=== PATIENT | female | born 1975 | race Two or more races ===

== ENCOUNTER 2017-04-11 00:26 | Emergency (ER) | payer SELFPAY ==
[2017-04-11 00:33] VITALS: BP 141/95
--- NOTE | 2017-04-11 01:25 | DR.GENAD ---
HPI - Complaint/Symptoms Chief Complaint:: HEADACHE AND DIZZY. ONSET YESTERDAY. DENIES N/V. Self Treatment fo Chief Complaint: NONE - Source History Provided: Patient - Mode of Arrival Mode of Arrival: Ambulatory - Timing Onset of Chief Complaint: 04/09/17 PMH - PMH Past Medical History: Yes Past Medical History: Diabetes Past Surgical History: Yes Surgical History: - Family History History of Family Medical Conditions: No - infectious screening Have you traveled outside the country in the last 6 months?: No ROS - Review of Systems Eyes: No Symptoms Reported ENTM: Nose Congestion Respiratoy: No Symptoms Reported Cardiovascular: No Symptoms Reported Gastrointestinal/Abdominal: No Symptoms Reported Genitourinary: No Symptoms Reported Neurological: Headache Musculoskeletal: No Symptoms Reported Integumentary: No Symptoms Reported Hematologic/Lymphatic: No Symptoms Reported Endocrine: No Symptoms Reported Psychiatric: No Symptoms Reported All Other Systems: Reviewed and Negative PE - Vital Signs Vitals: Temperature 97.9 F Pulse Rate 84 Respiratory Rate 18 Blood Pressure 141/95 O2 Sat by Pulse Oximetry 98 - General Limitations: Language Barrier General Appearance: Alert, In No Apparent Distress - Head Head Exam: Normal Inspection, Atraumatic - Eyes Eye exam: Normal Appearance, PERRL, EOMI - ENT ENT Exam: Mucous Membranes Moist External Ear Exam: Normal External Inspection TM/Canal Exam: Bilateral Normal Nose Exam: Normal Nose Exam, Other (congestion) Mouth Exam: Normal Inspection Throat Exam: Normal Inspection - Neck Neck Exam: Normal Inspection, Full ROM - Chest Chest Inspection: Normal Inspection, Symmetric Chest Wall Rise - Respiratory Respiratory Exam: Normal Lung Sounds Bilat Respiratory Exam: Bilateral Clear to Auscultation - Cardiovascular Cardiovascular Exam: Regular Rate, Normal Rhythm - Abdominal Exam Abdominal Exam: Normal Inspection, Normal Bowel Sounds Abdominal Tenderness: negative: RUQ, RLQ, LUQ, LLQ, Epigastrium, Suprapubic, Diffuse, Mild, Moderate, Severe, Other - Extremities Extremities Exam: Normal Inspection, Full ROM - Back Back Exam: Normal Inspection, Full ROM - Neurologic Neurological Exam: Alert, Oriented X3, CN II-XII Intact - Psychiatric Psychiatric Exam: Normal Affect, Normal Mood - Skin Skin Exam: Warm, Dry, Intact ROR - XRAY XRAY Interpreted by: Radiologist (Chest: No acute abnormality observed. Cervical Spine: no abnormality noted) - Diagnosis Discharge Problem: Myalgia Upper respiratory infection Qualifiers: URI type: unspecified viral URI Qualified Code(s): J06.9 - Acute upper respiratory infection, unspecified; B97.89 - Other viral agents as the cause of diseases classified elsewhere - Discharge Plan Condition: Stable - Follow ups/Referrals Follow ups/Referrals: NFD,None [Primary Care Provider] - 3 days - Instructions
[2017-04-11 01:46] VITALS: BMI 30.2
--- NOTE | 2017-04-11 02:10 | RAD ---
EXAM: Chest X-ray INDICATION: Cough COMPARISION: No prior exam TECHNIQUE: AP, single view FINDINGS: The lungs are clear in the lung volumes are within normal limits. No pleural effusion or pneumothora x. The cardiac silhouette and mediastinum are normal. The regional skeleton is intact. IMPRESSION: Normal Chest X-Ray Reported By:
--- NOTE | 2017-04-11 02:14 | RAD ---
EXAM: Cervical spine x-ray INDICATION: Neck pain COMPARISION: No priors available for comparison TECHNIQUE: AP, lateral, and odontoid, three views FINDINGS: There is normal alignment of the cervical spine. The disc and vertebral body heights are preserved. The facets are intact. The soft tissues are normal. IMPRESSION: Normal cervical spine x-ray examination Reported By:
[2017-04-11] MEDS ORDERED: TORADOL 30 MG VIAL IM ONE (02:26)
[2017-04-11] MEDS ORDERED: TORADOL 30 MG VIAL ONE (02:27)
== END 2017-04-11 02:46 | disposition home or self-care (01) ==
LOC: ER 00:26
DX: J06.9 Acute upper respiratory infection, unspecified (principal); M79.1 Myalgia
CPT/HCPCS: 71010; 72040; 96372; 99282; J1885